=== PATIENT | female | born 1935 | race Hispanic/Latino ===

== ENCOUNTER → 2017-12-12 | Outpatient (CLI) | payer OTHER ==
[~2017-12-12] VITALS: Ht 152.4 cm; Wt 60.8 kg
[~2017-12-12] MED LIST: ASPI-1012 PO; LISI1TAB13 PO; ONDA4TAB10 PO; REGADENOSON 0.4 MG/5 ML PF SYG IVP SCH; ROSU20TA PO; [UNRECOGNIZED DRUG - OTHER] TP
== END | disposition home or self-care (01) ==
LOC: SHCH 10:03
PROVIDERS: ATTEND Internal Medicine Cardiovascular Disease
DX: I20.0 Unstable angina (principal); R06.00 Dyspnea, unspecified; R51 Headache
CPT/HCPCS: 78452; 93017; 96374; A9500 ×2; J2785

== ENCOUNTER → 2017-12-19 | Outpatient (CLI) | payer OTHER ==
[~2017-12-19] MED LIST changes: -REGADENOSON 0.4 MG/5 ML PF SYG IVP SCH
== END | disposition home or self-care (01) ==
LOC: SHCH 12:33
PROVIDERS: ATTEND Internal Medicine Cardiovascular Disease
DX: K21.9 Gastro-esophageal reflux disease without esophagitis (principal); I51.7 Cardiomegaly; I70.0 Atherosclerosis of aorta; I34.0 Nonrheumatic mitral (valve) insufficiency; I35.1 Nonrheumatic aortic (valve) insufficiency
CPT/HCPCS: 93306; 93970

== ENCOUNTER → 2018-01-30 | Outpatient (CLI) | payer OTHER | END | disposition home or self-care (01) | LOC: SHCH 08:55 | PROVIDERS: ATTEND Internal Medicine Cardiovascular Disease | DX: Z09 Encounter for follow-up examination after completed treatment for conditions other than malignant neoplasm (principal) | CPT/HCPCS: 93971 ==

== ENCOUNTER → 2018-02-06 | Outpatient (CLI) | payer OTHER | END | disposition home or self-care (01) | LOC: SHCH 08:44 | PROVIDERS: ATTEND Internal Medicine Cardiovascular Disease | DX: Z09 Encounter for follow-up examination after completed treatment for conditions other than malignant neoplasm (principal) | CPT/HCPCS: 93971 ==

== ENCOUNTER 2018-11-22 15:58 | Emergency (ER) | payer OTHER ==
[~2018-11-22 15:58] MED LIST changes: -LISI1TAB13 PO; +LISI1TAB29 PO; -ROSU20TA PO; +ROSU20TA23 PO
[2018-11-22] MEDS ORDERED: KETOROLAC TROMETHAMINE 30MG/ML ONE (17:11)
[2018-11-22 17:21] LABS: BASOPHILS % (AUTO) 0.7 % (0.0-5.0); EOSINOPHILS % (AUTO) 2.8 % (0.0-8.0); HEMATOCRIT 34.2 % (36-48); LYMPHOCYTES % (AUTO) 31.4 % (21.0-51.0); MEAN CORPUSCULAR HEMOGLOBIN 31.2 pg (27.0-33.0); MEAN CORPUSCULAR HGB CONC 34.4 g/dL (32.0-36.0); MEAN CORPUSCULAR VOLUME 90.7 fL (79-99); MONOCYTES % (AUTO) 9.5 % (3.0-13.0); NEUTROPHILS % (AUTO) 55.6 % (40.0-77.0); NUCLEATED RED BLOOD CELLS 0.1 % (0.0-0.19); PLATELET COUNT (AUTO) 229 K/uL (130-400); RED BLOOD CELL COUNT(AUTO) 3.77 MIL/uL (4.00-5.50); RED CELL DISTRIBUTION WIDTH 13.6 % (11.0-15.5); WHITE BLOOD COUNT (AUTO) 6.8 K/uL (4.8-10.8)
[2018-11-22 17:30] LABS: CREATININE 1.2 mg/dL (0.5-1.5); POTASSIUM 3.4 mmol/L (3.5-5.1)
== END 2018-11-22 19:30 | disposition home or self-care (01) ==
LOC: EDH 15:58
DX: S43.421A Sprain of right rotator cuff capsule, initial encounter (principal); S46.001A Unspecified injury of muscle(s) and tendon(s) of the rotator cuff of right shoulder, initial encounter; I10 Essential (primary) hypertension; Z88.0 Allergy status to penicillin; Z88.8 Allergy status to other drugs, medicaments and biological substances; Z98.890 Other specified postprocedural states; W18.39XA Other fall on same level, initial encounter; Z90.710 Acquired absence of both cervix and uterus; Y93.89 Activity, other specified; Y92.810 Car as the place of occurrence of the external cause; Y99.8 Other external cause status
CPT/HCPCS: 36415; 72040; 73030; 80048; 84484; 85025; 93005; 96374; 99284; J1885

== ENCOUNTER → 2018-12-01 | Outpatient (CLI) | payer OTHER ==
[~2018-12-01] MED LIST changes: +LISI1TAB13 PO; -LISI1TAB29 PO
== END | disposition home or self-care (01) ==
LOC: SHCH 09:10
PROVIDERS: ATTEND Internal Medicine Cardiovascular Disease
DX: I73.9 Peripheral vascular disease, unspecified (principal); I87.2 Venous insufficiency (chronic) (peripheral)
CPT/HCPCS: 93925; 93970

== ENCOUNTER → 2018-12-19 | Outpatient (CLI) | payer OTHER | END | disposition home or self-care (01) | LOC: OIH 09:23 | PROVIDERS: ATTEND Family Medicine | DX: M19.012 Primary osteoarthritis, left shoulder (principal) | CPT/HCPCS: 73030 ==

== ENCOUNTER → 2019-01-01 | Outpatient (CLI) | payer OTHER | END | disposition home or self-care (01) | LOC: SHCH 13:53 | PROVIDERS: ATTEND Internal Medicine Cardiovascular Disease | DX: Z09 Encounter for follow-up examination after completed treatment for conditions other than malignant neoplasm (principal) | CPT/HCPCS: 93971 ==

== ENCOUNTER → 2019-04-09 | Outpatient (CLI) | payer OTHER ==
[~2019-04-09] MED LIST changes: -LISI1TAB13 PO; +LISI1TAB29 PO
== END | disposition home or self-care (01) ==
LOC: SHCH 08:28
PROVIDERS: ATTEND Internal Medicine Cardiovascular Disease
DX: I82.432 Acute embolism and thrombosis of left popliteal vein (principal)
CPT/HCPCS: 93971

== ENCOUNTER → 2019-08-29 | Outpatient (CLI) | payer OTHER | END | disposition home or self-care (01) | LOC: SHCH 15:02 | PROVIDERS: ATTEND Internal Medicine Cardiovascular Disease | DX: I87.2 Venous insufficiency (chronic) (peripheral) (principal) | CPT/HCPCS: 93970 ==

== ENCOUNTER → 2019-09-17 | Outpatient (CLI) | payer OTHER | END | disposition home or self-care (01) | LOC: SHCH 10:00 | PROVIDERS: ATTEND Internal Medicine Cardiovascular Disease | DX: I87.2 Venous insufficiency (chronic) (peripheral) (principal); Z09 Encounter for follow-up examination after completed treatment for conditions other than malignant neoplasm | CPT/HCPCS: 93970 ==

== ENCOUNTER 2019-12-24 15:21 | Inpatient (IN) | payer OTHER ==
[~2019-12-24] VITALS: Ht 152.4 cm; Wt 64.0 kg
[2019-12-24 15:39] LABS: BASOPHILS % (AUTO) 0.5 % (0.0-5.0); EOSINOPHILS % (AUTO) 2.2 % (0.0-8.0); HEMATOCRIT 34.4 % (36-48); LYMPHOCYTES % (AUTO) 33.9 % (21.0-51.0); MEAN CORPUSCULAR HEMOGLOBIN 30.4 pg (27.0-33.0); MEAN CORPUSCULAR HGB CONC 34.6 g/dL (32.0-36.0); MONOCYTES % (AUTO) 9.1 % (3.0-13.0); NEUTROPHILS % (AUTO) 53.9 % (40.0-77.0); PLATELET COUNT (AUTO) 187 K/uL (130-400); RED BLOOD CELL COUNT(AUTO) 3.91 MIL/uL (4.00-5.50); WHITE BLOOD COUNT (AUTO) 7.7 K/uL (4.8-10.8)
[2019-12-24 15:48] LABS: CREATININE 1.2 mg/dL (0.5-1.5); POTASSIUM 4.3 mmol/L (3.5-5.1)
[2019-12-24] MEDS ORDERED: ASPIRIN 325 MG TABLET ONE (15:50)
[2019-12-24 15:53] LABS: ALBUMIN 3.3 g/dL (3.5-5.0); BILIRUBIN,TOTAL 0.3 mg/dL (0.2-1.0); TOTAL PROTEIN, SERUM 6.6 g/dL (6.0-8.3)
[2019-12-24 16:20] LABS: INR 0.97 (0.85-1.15); PARTIAL THROMBOPLASTIN TIME 27.1 SEC (26.3-35.5); PROTHROMBIN TIME 10.5 SEC (9.6-11.6)
[2019-12-24] MEDS ORDERED: DiphenhydrAMINE HCL 50 MG/ML VIAL IVP PRN (18:00)
[2019-12-24] MEDS ORDERED: NITROGLYCERIN 1GM/1 INCH PACKET TD SCH (18:00)
[2019-12-24] MEDS ORDERED: CLONIDINE HCL 0.1 MG TABLET PO PRN (18:00)
[2019-12-24] MEDS ORDERED: SODIUM CHLORIDE 0.9% 10 ML VIAL IVP PRN (18:00)
[2019-12-24] MEDS ORDERED: ZOLPIDEM TARTRATE 5 MG TAB PO PRN (18:00)
[2019-12-24] MEDS ORDERED: DIPHENHYDRAMINE HCL 25 MG CAPSULE PO PRN (18:00)
[2019-12-24] MEDS ORDERED: GUAIFENESIN-DM 200/20 MG 10 ML PO PRN (18:00)
[2019-12-24] MEDS ORDERED: ACETAMINOPHEN 325 MG TAB PO PRN ×2 (18:00)
[2019-12-24] MEDS ORDERED: NITROGLYCERIN 0.4 MG SL TAB SL PRN (18:00)
[2019-12-24] MEDS ORDERED: MAG HYDROX/AL HYDROX/SIMETH ES 30 ML SUSP UDCUP PO PRN (18:00)
[2019-12-24] MEDS ORDERED: LACTULOSE 20 GM/30 ML UDCUP PO PRN (18:00)
[2019-12-24] MEDS ORDERED: GUAIFENESIN SUGAR-FREE 100 MG/5 ML UDCUP PO PRN (18:00)
[2019-12-24] MEDS ORDERED: FUROSEMIDE 10 MG/ML 4ML VIAL IVP SCH (18:00)
[2019-12-24 18:52] LABS: T4 (THYROXINE) 7.9 ug/dL (4.7-13.3); THYROID STIMULATING HORMONE 2.86 uIU/mL (0.36-3.74)
--- NOTE | 2019-12-24 20:25 | NUR ---
ADMIT PT ADMITTED TO ROOM 407,AAOX3. DENIES ANY CP NOR ANY DISCOMFORT AT THIS TIME. ADMISSION CARE DONE. ADMISSION DATA BASE COMPLETED. ORIENTED TO ROOM AND UNIT. PT'S FAMILY CALLED BY PATIENT. INSTRUCTED TO BE NPO POST MN FOR PROCEDURE. VERBALIZES UNDERSTANDING. PROVIDED SANDWICH, JELL-0 AND JUICE TO TAKE AT THIS TIME. PLACED ON O2 AT 2LPM VIA NC. IN FOR MORE CARE AND MANAGEMENT. Addendum: 12/24/19 at 2210 by GORAN LAU RN RN Amended: Links added.
[2019-12-24 20:30] VITALS: BP 140/51
[2019-12-24] MEDS ORDERED: [UNRECOGNIZED DRUG - OTHER] PO (21:22)
[2019-12-24] MEDS ORDERED: LISI-613 PO (21:22)
[2019-12-24] MEDS ORDERED: LINA72CA PO (21:22)
[2019-12-24] MEDS ORDERED: MECL-160 PO (21:22)
[2019-12-24] MEDS ORDERED: ISOS30TA6 PO (21:22)
--- NOTE | 2019-12-24 21:35 | NUR ---
[facility]ANE TELE MONITOR REPORTS PT'S HR ON THE 30'S-40'S WITH BBB. HEART RHYTHM THE SAME WHILE IN ER. GRAIN ORIGINATION SPECIALIST ALREADY HAD SEEN PT WITH ORDERS IN ER. PT AMBULATED TO THE RESTROOM BY HERSELF WITHOUT CALLING STAFF AND GOT DIZZY AND SOB. INSTRUCTED TO BE BEDREST FOR NOW. BED ALARM ACTIVATED. FAXED ORDER OR PROCEDURE ORDER TO RESOURCE NURSE AND MADE AWARE OF PT'S PROCEDURE IN AM.
[2019-12-24 22:36] LABS: CREATINE KINASE, TOTAL 76 U/L (21-232); MYOGLOBIN 52 ng/mL (10-92); TROPONIN I < 0.04 ng/mL (0.00-0.06)
[2019-12-24 23:30] VITALS: BP 115/50
[2019-12-25] VITALS (13 sets, daily range): BP systolic 92–150; BP diastolic 39–90
--- NOTE | 2019-12-25 02:00 | NUR ---
ROUNDS PT RESTING WELL, FAIRLY ASLEEP WITH RESPIRATIONS EVEN AND UNLABORED. NO NOTED DISTRESS. KEPT UNDISTURBED FOR NOW. WILL MONITOR PT. CALL LIGHT WITHIN REACH.
[2019-12-25 05:15] LABS: CREATINE KINASE, TOTAL 57 U/L (21-232); MYOGLOBIN 47 ng/mL (10-92); TROPONIN I < 0.04 ng/mL (0.00-0.06)
--- NOTE | 2019-12-25 06:26 | NUR ---
CONSENT SKYLAR GOLDMAN, ASKED TO GET CONSENT FOR PERMANENT PACEMAKER PLACEMENT IN [place]. PT SIGNED AND REFUSED BLOOD TRANSFUSION. CONSENT PLACED IN CHART.
[2019-12-25] MEDS: ASPIRIN 325 MG TABLET PO SCH (09:00)
[2019-12-25] MEDS: PANTOPRAZOLE SODIUM 40 MG TABLET.DR PO SCH (09:00)
[2019-12-25] MEDS ORDERED: FUROSEMIDE 10 MG/ML 4ML VIAL IV SCH (09:00)
[2019-12-25] MEDS ORDERED: LIDOCAINE HCL 1% MDV 50ML VIAL ONE (10:32)
[2019-12-25] MEDS ORDERED: VANCOMYCIN 1GM+NS 250ML 250 ML IV ONE ×2 (10:32→11:46)
[2019-12-25] MEDS ORDERED: IODIXANOL 320 MG/ML 100 ML VIAL ONE (10:32)
[2019-12-25] MEDS ORDERED: BUPIVACAINE/PF 0.25% 30ML VIAL IJ ONE (10:32)
[2019-12-25] MEDS ORDERED: MIDAZOLAM HCL 1 MG/ML 2ML VIAL ONE (10:32)
[2019-12-25] MEDS ORDERED: MEPERIDINE-PF 25 MG/ML SYG ONE (10:32)
--- NOTE | 2019-12-25 11:28 | NUR ---
PATIENT TRANSPORTED VIA BED TO [facility] FOR PACEMAKER INSERTION BY DR JOHNSON.
--- NOTE | 2019-12-25 12:00 | NUR ---
PATIENT DOWN FOR PPM WILL FOLLOW UP FOR CM ASSESSMENT LATER Addendum: 12/25/19 at 1535 by NAHUN FLEMING RN CM Amended: Links added.
--- NOTE | 2019-12-25 13:33 | NUR ---
S/P PACEMAKER REPORT GIVEN AT BEDSIDE , PATIENT ALERT AND ORIENTATED X3, DENIES PAIN AT THIS TIME, LEFT ARM IN SLING , SITE DRY AND INTACT, B/P 126/72, P 74, O2 SATS 99% ON BEDREST X 3 HOUR TILL 1630. WILL CONTINUE TO MONITOR
--- NOTE | 2019-12-25 17:52 | NUR ---
NOTIFIED BY RESPIRATORY OF CHEST XRAY RESULTS: NO INFILTRATE IS SEEN, THERE IS 30% LEFT SIDE PNEUMOTHORAX . ORDERES RECEIVED FOR O2 AT 100% OR MUCH PATIENT CAN TOLERATE, IS EVERY 2 HOURS, AND CHEST XRAY AT MIDNIGHT
--- NOTE | 2019-12-25 19:55 | NUR ---
PATIENT A/OX3. TALKING ON THE PHONE WITH FAMILY. NON RE BREATHER ON PATIENT'S CHIN. NO RESPIRATORY DISTRESS NOTED. DENIES CHEST PAIN.POST PM PLACEMENT. LEFT UPPER CHEST INCISION. DRESSING CDI. SWELLING/ BRUISING TO PM SITE. WILL CONTINUE TO MONITOR FOR HEMATOMA.
--- NOTE | 2019-12-25 20:00 | NUR ---
DR COSBY AT BEDSIDE CHEST TUBE INSERTED AT BEDSIDE. LOW CONTINUOUS SUCTION. UNMEASURABLE AMOUNT OF SEROUS FLUID IN ATRIUM. PATIENT CURRENTLY ON A NON RE BREATHER. PER DR COSBY CXR TO BE DONE POST INSERTION.
[2019-12-25] MEDS: MORPHINE SULFATE 2 MG/ML 1ML SYG IVP PRN (20:58)
[2019-12-26] MEDS: MORPHINE SULFATE 2 MG/ML 1ML SYG IVP PRN ×3 (01:09→15:05)
[2019-12-26 03:23] VITALS: BP 146/65
[2019-12-26 04:16] LABS: BASOPHILS % (AUTO) 0.6 % (0.0-5.0); EOSINOPHILS % (AUTO) 1.5 % (0.0-8.0); HEMATOCRIT 34.3 % (36-48); LYMPHOCYTES % (AUTO) 21.2 % (21.0-51.0); MEAN CORPUSCULAR HEMOGLOBIN 29.9 pg (27.0-33.0); MEAN CORPUSCULAR HGB CONC 33.5 g/dL (32.0-36.0); MEAN CORPUSCULAR VOLUME 89.1 fL (79-99); MONOCYTES % (AUTO) 9.6 % (3.0-13.0); NEUTROPHILS % (AUTO) 66.7 % (40.0-77.0); PLATELET COUNT (AUTO) 175 K/uL (130-400); RED BLOOD CELL COUNT(AUTO) 3.85 MIL/uL (4.00-5.50); RED CELL DISTRIBUTION WIDTH 13.8 % (11.0-15.5)
[2019-12-26 04:33] LABS: CREATININE 1.1 mg/dL (0.5-1.5); POTASSIUM 4.4 mmol/L (3.5-5.1)
[2019-12-26 07:49] VITALS: BP 154/77
[2019-12-26] MEDS: PANTOPRAZOLE SODIUM 40 MG TABLET.DR PO SCH (08:21)
[2019-12-26] MEDS: ASPIRIN 325 MG TABLET PO SCH (08:21)
[2019-12-26] MEDS: ONDANSETRON HCL 4 MG/2 ML VIAL IVP PRN ×2 (08:32→18:17)
[2019-12-26 11:16] VITALS: BP 138/78
[2019-12-26 15:30] VITALS: BP 121/61
[2019-12-26] MEDS: ACETAMINOPHEN-CODEINE 300/30MG TAB PO PRN (18:21)
[2019-12-26 20:00] VITALS: BP 133/72
[2019-12-27] VITALS (7 sets, daily range): BP systolic 95–149; BP diastolic 53–92
[2019-12-27] MEDS: MORPHINE SULFATE 2 MG/ML 1ML SYG IVP PRN ×3 (03:55→18:11)
--- NOTE | 2019-12-27 08:15 | NUR ---
chest tube pt awake and alert, denies chest pain, no sob or labored respirations. chest tube in place and patent, secured, clamped as ordered. ppm site intact, no edema, no hematoma, pulses palpable. ppm precautions. assistance with adls. pt states no bm in a few days, refuses stool softener or laxative.
[2019-12-27] MEDS: ACETAMINOPHEN-CODEINE 300/30MG TAB PO PRN ×2 (08:52→22:35)
[2019-12-27] MEDS: ASPIRIN 325 MG TABLET PO SCH (08:52)
[2019-12-27] MEDS: PANTOPRAZOLE SODIUM 40 MG TABLET.DR PO SCH (08:53)
[2019-12-27] MEDS ORDERED: ATORVASTATIN CALCIUM 40 MG TABLET PO SCH (21:00)
[2019-12-28 04:00] VITALS: BP 139/65
[2019-12-28] MEDS: ONDANSETRON HCL 4 MG/2 ML VIAL IVP PRN (04:57)
[2019-12-28 07:00] VITALS: BP 133/73
[2019-12-28] MEDS: ASPIRIN 325 MG TABLET PO SCH (07:35)
[2019-12-28] MEDS: PANTOPRAZOLE SODIUM 40 MG TABLET.DR PO SCH (07:35)
[2019-12-28] MEDS: MORPHINE SULFATE 2 MG/ML 1ML SYG IVP PRN (07:36)
[2019-12-28] MEDS ORDERED: LISINOPRIL 20 MG TABLET PO SCH (09:00)
[2019-12-28] MEDS ORDERED: ASPIRIN 325 MG TABLET PO SCH (09:00)
[2019-12-28] MEDS ORDERED: ISOSORBIDE MONO 30MG TAB SR PO SCH (09:00)
[2019-12-28 11:00] VITALS: BP 103/55
--- NOTE | 2019-12-28 11:52 | NUR ---
LEFT SIDE CHEST TUBE REMOVED WITH NO COMPLICATIONS. DR. LLANOS ROUNDED. IF PATIENT DOES WELL POST CHEST TUBE REMOVAL CAN BE DISCHARGED LATER THIS EVENING. PATIENT PLACED ON ROOM AIR. WILL CONTINUE TO MONITOR.
[2019-12-28 16:00] VITALS: BP 106/55
--- NOTE | 2019-12-28 16:55 | NUR ---
PATIENT DOING WELL POST CHEST TUBE REMOVAL, NO COMPLICATIONS, AMBULATING WITH HAND HELD ASSIST WITH NO DIFFICULTIES. SATURATING WELL ON ROOM AIR. SPOKE WITH DR. VIET YOUNG TO DISCHARGE PATIENT AND FOLLOW UP IN OFFICE ON TUESDAY
--- NOTE | 2019-12-28 17:35 | NUR ---
DISCHARGE INSTRUCTIONS GIVEN TO PATIENT, EDUCATED ON LEFT ARM PRECAUTIONS AND SITE CARE WELL CARE OF CHEST TUBE REMOVAL SITE. MADE AWARE OF FOLLOW UP APPOINTMENT WITH DR. LLANOS AND NEED TO SCHEDULE APPOINTMENT WITH DR. COSBY AND DR. JOHNSON, PROVIDED WITH PHONE NUMBERS. PATIENT AT THIS TIME AMBULATING IN ROOM WITH NO DIFFICULTY. DENIES CHEST PAIN OR SOB. IV AND TELE PACK REMOVED. GIVEN PACEMAKER IMPLANT CARD INFO. CHF EDUCATIONS PROVIDED VERBAL/WRITTEN. NO NEW PRESCRIPTIONS. PATIENT AWAITING HER DAUGHTER TO PICK HER UP
--- NOTE | 2019-12-28 19:37 | NUR ---
RECEIVED CALL FROM PATIENTS DAUGHTER REGARDING DISCHARGE INSTRUCTIONS. DAUGHTER REQUESTING DISCHARGE INSTRUCTIONS BE GIVEN OVER THE PHONE DUE TO SENT IN [place] FOR PATIENT. WENT OVER ALL FOLLOW UP APPOINTMENTS, LEFT ARM RESTRICTIONS, PACEMAKER MONITOR AT BEDSIDE, CHEST TUBE REMOVAL SITE CARE, AND PACEMAKER SITE CARE. ALL QUESTIONS ANSWERED.
[2020-05-06] MEDS ORDERED: HYDR-4060 PO (16:17)
[2020-05-06] MEDS ORDERED: NITR0.4T50 SL (16:17)
[2020-05-06] MEDS ORDERED: DEXL30CA3 PO (16:17)
[2020-05-22] MEDS ORDERED: FLUT1AER IH (19:45)
[2020-05-23] MEDS ORDERED: LEVO500T89 PO (10:46)
[2020-05-23] MEDS ORDERED: LEVE250T PO (10:46)
== END 2019-12-28 18:15 | disposition home or self-care (01) | DRG 242 ==
LOC: EDH 15:21 → EDHIP 17:19 → 4BH 20:47
PROVIDERS: ADMIT Family Medicine; ATTEND Family Medicine
PROC: 0JH606Z Insertion of Pacemaker, Dual Chamber into Chest Subcutaneous Tissue and Fascia, Open Approach (ICD-10-PCS; principal; 2019-12-25)
PROC: 02H63JZ Insertion of Pacemaker Lead into Right Atrium, Percutaneous Approach (ICD-10-PCS; 2019-12-25)
PROC: 02HK3JZ Insertion of Pacemaker Lead into Right Ventricle, Percutaneous Approach (ICD-10-PCS; 2019-12-25)
PROC: 0W9B30Z Drainage of Left Pleural Cavity with Drainage Device, Percutaneous Approach (ICD-10-PCS; 2019-12-26)
DX: I49.5 Sick sinus syndrome (principal); I50.33 Acute on chronic diastolic (congestive) heart failure; I44.2 Atrioventricular block, complete; J95.811 Postprocedural pneumothorax; I87.2 Venous insufficiency (chronic) (peripheral); I25.10 Atherosclerotic heart disease of native coronary artery without angina pectoris; E78.5 Hyperlipidemia, unspecified; I11.0 Hypertensive heart disease with heart failure; Y71.8 Miscellaneous cardiovascular devices associated with adverse incidents, not elsewhere classified; I37.1 Nonrheumatic pulmonary valve insufficiency; I44.1 Atrioventricular block, second degree; Y92.89 Other specified places as the place of occurrence of the external cause; Z79.82 Long term (current) use of aspirin; Z79.899 Other long term (current) drug therapy; Z90.710 Acquired absence of both cervix and uterus; Z95.5 Presence of coronary angioplasty implant and graft; Z88.0 Allergy status to penicillin; Z88.8 Allergy status to other drugs, medicaments and biological substances
CPT/HCPCS: 33208; 36415; 71045; 80048; 80053; 82550; 83874; 83880; 84436; 84443; 84484; 85025; 85610; 85730; 93005; 93306; 93356; 99156; 99157; C1785; G0378; J2175; J2250; J2405; J3370; J3490; Q9967

== ENCOUNTER → 2020-01-29 | Outpatient (CLI) | payer OTHER | END | disposition home or self-care (01) | LOC: OIH 08:52 | PROVIDERS: ATTEND Family Medicine | DX: S43.422A Sprain of left rotator cuff capsule, initial encounter (principal); M85.812 Other specified disorders of bone density and structure, left shoulder; X58.XXXA Exposure to other specified factors, initial encounter; Y93.89 Activity, other specified; Y92.89 Other specified places as the place of occurrence of the external cause; Y99.8 Other external cause status ==

== ENCOUNTER → 2020-04-25 | Outpatient (CLI) | payer OTHER ==
[~2020-04-25] MED LIST changes: +DEXL30CA3 PO; +HYDR-4060 PO; +ISOS30TA6 PO; +LINA72CA PO; +LISI-613 PO; -LISI1TAB29 PO; +MECL-160 PO; +NITR0.4T50 SL; +[UNRECOGNIZED DRUG - OTHER] PO; -[UNRECOGNIZED DRUG - OTHER] TP
== END | disposition home or self-care (01) ==
LOC: SHCH 10:26
PROVIDERS: ATTEND Internal Medicine Cardiovascular Disease
DX: R60.9 Edema, unspecified (principal)
CPT/HCPCS: 93970

== ENCOUNTER → 2020-04-28 | Outpatient (CLI) | payer OTHER ==
[~2020-04-28] MED LIST changes: -DEXL30CA3 PO; -HYDR-4060 PO; -NITR0.4T50 SL
== END | disposition home or self-care (01) ==
LOC: OIH 09:54
PROVIDERS: ATTEND Family Medicine
DX: I25.10 Atherosclerotic heart disease of native coronary artery without angina pectoris (principal); Q25.49 Other congenital malformations of aorta; R05 Cough
CPT/HCPCS: 71046

== ENCOUNTER 2020-05-20 13:19 | Emergency (ER) | payer OTHER ==
[~2020-05-20 13:19] MED LIST changes: +DEXL30CA3 PO; +HYDR-4060 PO; +NITR0.4T50 SL
[2020-05-20] MEDS ORDERED: ONDANSETRON HCL 4 MG/2 ML VIAL ONE (13:28)
[2020-05-20 14:05] LABS: APPEARANCE,URINE Cloudy (CLEAR); BILIRUBIN,URINE Negative (NEGATIVE); COLOR,URINE Dark Yellow (YELLOW); GLUCOSE, URINE (UA) Negative (NEGATIVE); KETONES,URINE Trace mg/dL (NEGATIVE); LEUKOCYTE ESTERASE ,URINE Moderate (NEGATIVE); NITRATE,URINE Negative (NEGATIVE); OCCULT BLOOD,URINE Negative (NEGATIVE); PH,URINE 6.5 (5.0-8.0); PROTEIN,URINE POS 1+ mg/dL (NEGATIVE)
[2020-05-20 14:18] LABS: BASOPHILS % (AUTO) 0.3 % (0.0-5.0); EOSINOPHILS % (AUTO) 0.8 % (0.0-8.0); HEMATOCRIT 39.4 % (36-48); LYMPHOCYTES % (AUTO) 32.2 % (21.0-51.0); MEAN CORPUSCULAR HEMOGLOBIN 29.5 pg (27.0-33.0); MEAN CORPUSCULAR VOLUME 89.3 fL (79-99); MONOCYTES % (AUTO) 10.7 % (3.0-13.0); NEUTROPHILS % (AUTO) 54.8 % (40.0-77.0); PLATELET COUNT (AUTO) 268 K/uL (130-400); RED BLOOD CELL COUNT(AUTO) 4.41 MIL/uL (4.00-5.50); RED CELL DISTRIBUTION WIDTH 14.4 % (11.0-15.5); WHITE BLOOD COUNT (AUTO) 15.6 K/uL (4.8-10.8)
[2020-05-20 14:25] LABS: BACTERIA,URINE Many /HPF (None Seen); RBC,URINE 0-1 /HPF (0-1)
[2020-05-20 14:26] LABS: MUCUS,URINE Few LPF (None Seen); SQUAMOUS EPITHELIAL CELL,UR Few /HPF (0-2)
[2020-05-20 14:30] LABS: CREATININE 1.7 mg/dL (0.5-1.5); PARTIAL THROMBOPLASTIN TIME 24.1 SEC (26.3-35.5); POTASSIUM 3.4 mmol/L (3.5-5.1); PROTHROMBIN TIME 10.8 SEC (9.6-11.6)
[2020-05-20 14:36] LABS: ALBUMIN 3.5 g/dL (3.5-5.0); BILIRUBIN,TOTAL 0.3 mg/dL (0.2-1.0); TOTAL PROTEIN, SERUM 7.9 g/dL (6.0-8.3)
[2020-05-20] MEDS ORDERED: LEVOFLOXACIN 500 MG/D5W 100 ML 100 ML ONE (14:47)
[2020-05-20] MEDS ORDERED: FOSPHENYTOIN SODIUM 500 MG/10ML VIAL IJ ONE (15:04)
[2020-05-22] MEDS ORDERED: FLUT1AER IH (19:45)
[2020-05-23] MEDS ORDERED: LEVO500T89 PO (10:46)
[2020-05-23] MEDS ORDERED: LEVE250T PO (10:46)
== END 2020-05-20 16:30 | disposition home or self-care (01) ==
LOC: EDH 13:19
DX: N39.0 Urinary tract infection, site not specified (principal); R56.9 Unspecified convulsions; I10 Essential (primary) hypertension; E11.9 Type 2 diabetes mellitus without complications; I25.10 Atherosclerotic heart disease of native coronary artery without angina pectoris; Z88.0 Allergy status to penicillin; Z88.8 Allergy status to other drugs, medicaments and biological substances
CPT/HCPCS: 36415; 70450; 71045; 80053; 81001; 82948; 83605; 83880; 84484; 85025; 85610; 85730; 87040 ×2; 87077; 87088; 87186; 93005; 96365; 96368; 96375; 99285; J1956; J2405; Q2009; 96374

== ENCOUNTER → 2020-06-06 | Outpatient (CLI) | payer OTHER ==
[~2020-06-06] MED LIST changes: +AEC81 PO; +FLUT1AER IH; +HYDR12.54 PO; +LEVE250T PO; +LEVE750T10 PO; +LEVO500T89 PO; +VERA120T13 PO; -[UNRECOGNIZED DRUG - OTHER] PO
[2020-06-06 09:57] LABS: BASOPHILS % (AUTO) 0.6 % (0.0-5.0); EOSINOPHILS % (AUTO) 3.7 % (0.0-8.0); HEMATOCRIT 36.7 % (36-48); LYMPHOCYTES % (AUTO) 28.9 % (21.0-51.0); MEAN CORPUSCULAR HEMOGLOBIN 29.4 pg (27.0-33.0); MEAN CORPUSCULAR HGB CONC 33.5 g/dL (32.0-36.0); MEAN CORPUSCULAR VOLUME 87.8 fL (79-99); MONOCYTES % (AUTO) 10.5 % (3.0-13.0); NEUTROPHILS % (AUTO) 55.7 % (40.0-77.0); PLATELET COUNT (AUTO) 212 K/uL (130-400); RED BLOOD CELL COUNT(AUTO) 4.18 MIL/uL (4.00-5.50); RED CELL DISTRIBUTION WIDTH 13.9 % (11.0-15.5)
[2020-06-06 09:59] LABS: APPEARANCE,URINE Clear (CLEAR); BILIRUBIN,URINE Negative (NEGATIVE); COLOR,URINE Yellow (YELLOW); GLUCOSE, URINE (UA) Negative (NEGATIVE); KETONES,URINE Negative (NEGATIVE); LEUKOCYTE ESTERASE ,URINE Negative (NEGATIVE); NITRATE,URINE Negative (NEGATIVE); OCCULT BLOOD,URINE Negative (NEGATIVE); PH,URINE 6.5 (5.0-8.0); PROTEIN,URINE Negative (NEGATIVE); UROBILINOGEN,URINE 0.2 mg/dL (0.2-1.0)
[2020-06-06 10:08] LABS: CREATININE 1.1 mg/dL (0.5-1.5); POTASSIUM 4.6 mmol/L (3.5-5.1)
[2020-06-06 10:10] LABS: INR 0.94 (0.85-1.15); PARTIAL THROMBOPLASTIN TIME 26.4 SEC (26.3-35.5); PROTHROMBIN TIME 10.2 SEC (9.6-11.6)
== END | disposition home or self-care (01) ==
LOC: EDSTATUS 08:00 → DAH 10:00 → EDSTATUS 06-10 08:00
PROVIDERS: ATTEND Internal Medicine Cardiovascular Disease
DX: Z01.810 Encounter for preprocedural cardiovascular examination (principal); I25.119 Atherosclerotic heart disease of native coronary artery with unspecified angina pectoris; I49.1 Atrial premature depolarization; Z79.01 Long term (current) use of anticoagulants; Z88.1 Allergy status to other antibiotic agents; Z88.8 Allergy status to other drugs, medicaments and biological substances
CPT/HCPCS: 36415; 71045; 80048; 81003; 85025; 85610; 85730; 93005

== ENCOUNTER 2020-11-13 12:00 | Inpatient (IN) | payer OTHER ==
[~2020-11-13] VITALS: Ht 152.4 cm; Wt 60.1 kg
[2020-11-13 09:50] VITALS: BP 141/64
[2020-11-13 11:38] LABS: BASOPHILS % (AUTO) 0.5 % (0.0-5.0); EOSINOPHILS % (AUTO) 2.5 % (0.0-8.0); HEMATOCRIT 37.1 % (36-48); LYMPHOCYTES % (AUTO) 30.3 % (21.0-51.0); MEAN CORPUSCULAR HEMOGLOBIN 29.4 pg (27.0-33.0); MEAN CORPUSCULAR HGB CONC 33.2 g/dL (32.0-36.0); MEAN CORPUSCULAR VOLUME 88.5 fL (79-99); MONOCYTES % (AUTO) 8.8 % (3.0-13.0); NEUTROPHILS % (AUTO) 57.2 % (40.0-77.0); PLATELET COUNT (AUTO) 258 K/uL (130-400); RED BLOOD CELL COUNT(AUTO) 4.19 MIL/uL (4.00-5.50); RED CELL DISTRIBUTION WIDTH 14.6 % (11.0-15.5)
[2020-11-13 11:50] LABS: CREATININE 1.1 mg/dL (0.5-1.5); POTASSIUM 4.4 mmol/L (3.5-5.1)
[2020-11-13 11:54] LABS: APPEARANCE,URINE Clear (CLEAR); BILIRUBIN,URINE Negative (NEGATIVE); COLOR,URINE Yellow (YELLOW); GLUCOSE, URINE (UA) Negative (NEGATIVE); KETONES,URINE Negative (NEGATIVE); LEUKOCYTE ESTERASE ,URINE Negative (NEGATIVE); NITRATE,URINE Negative (NEGATIVE); OCCULT BLOOD,URINE Negative (NEGATIVE); PROTEIN,URINE Negative (NEGATIVE); UROBILINOGEN,URINE 0.2 mg/dL (0.2-1.0)
[~2020-11-13 12:00] MED LIST changes: -ASPI-1012 PO; -FLUT1AER IH; -HYDR-4060 PO; -HYDR12.54 PO; -ISOS30TA6 PO; +ISOS30TA92 PO; -LEVE250T PO; -LEVE750T10 PO; -LEVO500T89 PO; -LISI-613 PO; +LISI20TA24 PO; -ROSU20TA23 PO; -VERA120T13 PO
[2020-11-13 13:41] LABS: PROTHROMBIN TIME 10.9 SEC (9.6-11.6)
[2020-11-14] MEDS ORDERED: LORA10TA7 PO (14:05)
[2020-11-14] MEDS ORDERED: ROSU20TA31 PO (14:05)
[2020-11-14] MEDS ORDERED: LAMO50TA3 PO ×2 (14:05)
[2020-11-14] MEDS ORDERED: HYDR-4060 PO (14:05)
[2020-11-14] MEDS ORDERED: MUPI22OI2 TP (14:05)
[2020-11-14] MEDS ORDERED: LACT10SO9 PO (14:05)
[2020-11-17] VITALS (21 sets, daily range): BP systolic 98–179; BP diastolic 54–86
[2020-11-17] MEDS ORDERED: LACTATED RINGERS 1000ML 1,000 ML IV ONE (09:29)
[2020-11-17] MEDS ORDERED: CLINDAMYCIN IVPB 900MG/50ML 50 ML IV ONE ×2 (09:30→19:53)
[2020-11-17] MEDS ORDERED: ROPIVACAINE 0.5% 5MG/ML 30ML IJ ONE (10:37)
[2020-11-17] MEDS ORDERED: SUCCINYLCHOLINE CHLORIDE 20 MG/ML 10 ML VIAL ONE (10:38)
[2020-11-17] MEDS ORDERED: LIDOCAINE PF 100MG/5ML (2%) SYRINGE 5ML ONE (10:38)
[2020-11-17] MEDS ORDERED: FENTANYL CITRATE PF 50 MCG/1 ML 2ML VIAL ONE (10:39)
[2020-11-17] MEDS ORDERED: ROCURONIUM 10MG/1ML SYR 10 MG/ML ML ONE (10:39)
[2020-11-17] MEDS ORDERED: PROPOFOL 10 MG/ML 20ML VIAL IV ONE (10:39)
[2020-11-17] MEDS ORDERED: CLINDAMYCIN 900MG/6ML INJ ONE (11:17)
[2020-11-17] MEDS ORDERED: TRANEXAMIC ACID 1000MG/10ML ONE ×2 (11:17→16:17)
[2020-11-17] MEDS ORDERED: EPHEDRINE SULFATE 50 MG/ML AMPULE ONE (12:28)
[2020-11-17] MEDS ORDERED: GLYCOPYRROLATE 1 MG/5 ML SYRINGE ONE (15:33)
[2020-11-17] MEDS ORDERED: NEOSTIGMINE 5MG/5ML SYR IV ONE (15:33)
[2020-11-17] MEDS ORDERED: DiphenhydrAMINE HCL 50 MG/ML VIAL IVP PRN (15:45)
[2020-11-17] MEDS ORDERED: TEMAZEPAM 15 MG CAPSULE PO PRN (15:45)
[2020-11-17] MEDS ORDERED: 0.9%NACL 1000ML 1,000 ML IV SCH (15:45)
[2020-11-17] MEDS ORDERED: FE FUMARATE/FA/MV, MIN COMB#15 1 TAB PO PRN (15:45)
[2020-11-17] MEDS ORDERED: TRAMADOL HCL 50 MG TABLET PO PRN (15:45)
[2020-11-17] MEDS ORDERED: KCL 20 MEQ ERTAB PO PRN (15:45)
[2020-11-17] MEDS ORDERED: POTASSIUM CHLORIDE 20MEQ/100ML 100 ML IV PRN (15:45)
[2020-11-17] MEDS ORDERED: CALCIUM CARB 500MG PO PRN (15:45)
[2020-11-17] MEDS ORDERED: ONDANSETRON 4MG INJ IVP PRN (15:45)
[2020-11-17] MEDS ORDERED: KETOROLAC 15MG/ML VIAL (15MG/ML) IV PRN (15:45)
[2020-11-17] MEDS ORDERED: OXYCODONE HCL 5 MG TAB PO PRN ×2 (15:45)
[2020-11-17] MEDS ORDERED: LIDOCAINE HCL-MPF 1% 2ML VIAL IV PRN (15:45)
[2020-11-17] MEDS ORDERED: POTASSIUM CHLORIDE 10% ELIXIR 20 MEQ/15 ML UDCUP PO PRN (15:45)
[2020-11-17] MEDS: ACETAMINOPHEN 500 MG TABLET PO SCH ×2 (15:45→20:14)
[2020-11-17] MEDS ORDERED: ONDANSETRON 4MG INJ ONE (15:57)
[2020-11-17] MEDS ORDERED: NITROGLYCERIN 0.4 MG SL TAB SL PRN (19:00)
[2020-11-17] MEDS ORDERED: MECLIZINE HCL 25 MG TABLET PO PRN (19:00)
[2020-11-17] MEDS: MUPIROCIN OINTMENT 22 GM TUBE TP SCH ×2 (20:02→20:15)
[2020-11-17] MEDS: LINACLOTIDE 72 MCG PO SCH (20:02)
[2020-11-17] MEDS: CLINDAMYCIN IVPB 900MG/50ML 50 ML IVPB SCH (20:12)
[2020-11-17] MEDS: ATORVASTATIN 40 MG TABLET PO SCH (20:12)
[2020-11-17] MEDS: CELECOXIB 200 MG CAP PO SCH (20:13)
[2020-11-17] MEDS: LAMOTRIGINE 25 MG TAB PO SCH (20:13)
[2020-11-18] MEDS: CLINDAMYCIN IVPB 900MG/50ML 50 ML IVPB SCH (04:52)
[2020-11-18 05:06] LABS: MEAN CORPUSCULAR HEMOGLOBIN 28.7 pg (27.0-33.0); MEAN CORPUSCULAR HGB CONC 32.7 g/dL (32.0-36.0); MEAN CORPUSCULAR VOLUME 87.7 fL (79-99); RED BLOOD CELL COUNT(AUTO) 3.42 MIL/uL (4.00-5.50); RED CELL DISTRIBUTION WIDTH 14.6 % (11.0-15.5); WHITE BLOOD COUNT (AUTO) 8.9 K/uL (4.8-10.8)
[2020-11-18 05:14] VITALS: BP 104/58
[2020-11-18 05:21] LABS: CREATININE 1.2 mg/dL (0.5-1.5); POTASSIUM 4.3 mmol/L (3.5-5.1)
[2020-11-18] MEDS: ACETAMINOPHEN 500 MG TABLET PO SCH ×3 (06:14→20:13)
[2020-11-18] MEDS: FAMOTIDINE 20MG TAB PO SCH (07:58)
[2020-11-18] MEDS: ASPIRIN 81 MG EC TAB PO SCH (07:58)
[2020-11-18] MEDS: CELECOXIB 200 MG CAP PO SCH ×2 (07:58→20:12)
[2020-11-18 08:00] VITALS: BP 80/50
[2020-11-18] MEDS: POLYETHYLENE GLYCOL 3350 17 GM POWD.PACK PO SCH (08:01)
[2020-11-18] MEDS: LAMOTRIGINE 25 MG TAB PO SCH ×2 (08:43→20:12)
[2020-11-18] MEDS: MUPIROCIN OINTMENT 22 GM TUBE TP SCH ×2 (09:00→20:13)
[2020-11-18] MEDS ORDERED: ISOSORBIDE MONO 30MG SR TAB PO SCH (09:00)
[2020-11-18] MEDS ORDERED: LISINOPRIL 20 MG TABLET PO SCH (09:00)
[2020-11-18] MEDS: PANTOPRAZOLE 40 MG TAB DR PO SCH (09:00)
[2020-11-18 09:13] VITALS: BP 96/44
[2020-11-18] MEDS: LORATADINE 10 MG TABLET PO SCH (14:36)
[2020-11-18 16:00] VITALS: BP 139/71
[2020-11-18] MEDS: ATORVASTATIN 40 MG TABLET PO SCH (20:12)
[2020-11-18 20:39] VITALS: BP 143/69
[2020-11-18 23:39] VITALS: BP 156/62
[2020-11-19] MEDS: LINACLOTIDE 72 MCG PO SCH (00:05)
[2020-11-19 03:26] VITALS: BP 130/61
[2020-11-19 07:56] VITALS: BP 119/60
[2020-11-19] MEDS: MUPIROCIN OINTMENT 22 GM TUBE TP SCH (09:00)
[2020-11-19 11:20] VITALS: BP 145/58
[2020-11-19] MEDS: ACETAMINOPHEN 500 MG TABLET PO SCH ×2 (11:32→15:45)
[2020-11-19] MEDS: ASPIRIN 81 MG EC TAB PO SCH (11:32)
[2020-11-19] MEDS: LAMOTRIGINE 25 MG TAB PO SCH (11:33)
[2020-11-19] MEDS: FAMOTIDINE 20MG TAB PO SCH (11:33)
[2020-11-19] MEDS: PANTOPRAZOLE 40 MG TAB DR PO SCH (11:33)
[2020-11-19] MEDS: CELECOXIB 200 MG CAP PO SCH (11:33)
[2020-11-19] MEDS: LORATADINE 10 MG TABLET PO SCH (11:34)
[2020-11-19] MEDS: POLYETHYLENE GLYCOL 3350 17 GM POWD.PACK PO SCH (11:34)
[2020-11-19] MEDS ORDERED: HYDR-4060 PO ×2 (15:00→15:05)
[2020-11-19 16:41] VITALS: BP 136/76
[2020-11-20] MEDS ORDERED: BISACODYL 10 MG SUPP.RECT RC PRN (15:45)
[2021-06-12] MEDS ORDERED: METO-408 PO (12:57)
== END 2020-11-19 17:00 | disposition home health service (06) | DRG 483 ==
LOC: EDSTATUS 12:00 → DAHIP 11-17 07:52 → EDSTATUS 11-17 12:00 → 4AH 11-17 17:11
PROVIDERS: ADMIT Orthopaedic Surgery; ATTEND Orthopaedic Surgery
PROC: 0RRK00Z Replacement of Left Shoulder Joint with Reverse Ball and Socket Synthetic Substitute, Open Approach (ICD-10-PCS; principal; 2020-11-16)
DX: M12.812 Other specific arthropathies, not elsewhere classified, left shoulder (principal); G89.29 Other chronic pain; Z88.0 Allergy status to penicillin; Z88.8 Allergy status to other drugs, medicaments and biological substances; Z20.822 Contact with and (suspected) exposure to COVID-19; D64.9 Anemia, unspecified; E78.5 Hyperlipidemia, unspecified; I10 Essential (primary) hypertension; M12.9 Arthropathy, unspecified; Z82.49 Family history of ischemic heart disease and other diseases of the circulatory system; Z90.710 Acquired absence of both cervix and uterus; Z98.84 Bariatric surgery status
CPT/HCPCS: 36415; 73030; 80048; 81003; 85025; 85027; 85610; 87641; 88305; 88311; 97039; C1776; G0378; J0330; J1885; J2001; J2405; J2704; J2710; J2795; J3010; J3490; J7030; J7120; U0003

== ENCOUNTER → 2021-02-12 | Outpatient (CLI) | payer OTHER ==
[~2021-02-12] MED LIST changes: +HYDR-4060 PO; +LAMO50TA3 PO; +LORA10TA7 PO; +MUPI22OI2 TP; +ROSU20TA31 PO
== END | disposition home or self-care (01) ==
LOC: RAH 13:57
PROVIDERS: ATTEND Orthopaedic Surgery
DX: M75.101 Unspecified rotator cuff tear or rupture of right shoulder, not specified as traumatic (principal); M12.811 Other specific arthropathies, not elsewhere classified, right shoulder
CPT/HCPCS: 73200

== ENCOUNTER 2021-06-15 09:22 | Observation (INO) | payer OTHER ==
[2021-06-12 10:10] LABS: BASOPHILS % (AUTO) 0.6 % (0.0-5.0); HEMATOCRIT 36.1 % (36-48); LYMPHOCYTES % (AUTO) 21.5 % (21.0-51.0); MEAN CORPUSCULAR HEMOGLOBIN 28.7 pg (27.0-33.0); MEAN CORPUSCULAR HGB CONC 32.4 g/dL (32.0-36.0); MEAN CORPUSCULAR VOLUME 88.5 fL (79-99); MONOCYTES % (AUTO) 10.2 % (3.0-13.0); NEUTROPHILS % (AUTO) 62.4 % (40.0-77.0); PLATELET COUNT (AUTO) 207 K/uL (130-400); RED BLOOD CELL COUNT(AUTO) 4.08 MIL/uL (4.00-5.50); RED CELL DISTRIBUTION WIDTH 15.6 % (11.0-15.5); WHITE BLOOD COUNT (AUTO) 6.8 K/uL (4.8-10.8)
[2021-06-12 10:11] LABS: APPEARANCE,URINE Clear (CLEAR); BILIRUBIN,URINE Negative (NEGATIVE); COLOR,URINE Yellow (YELLOW); GLUCOSE, URINE (UA) Negative (NEGATIVE); KETONES,URINE Negative (NEGATIVE); LEUKOCYTE ESTERASE ,URINE Trace (NEGATIVE); NITRATE,URINE Negative (NEGATIVE); OCCULT BLOOD,URINE Negative (NEGATIVE); PH,URINE 5.5 (5.0-8.0); PROTEIN,URINE Negative (NEGATIVE); UROBILINOGEN,URINE 0.2 mg/dL (0.2-1.0)
[2021-06-12 10:25] LABS: INR 1.05 (0.85-1.15); PROTHROMBIN TIME 11.4 SEC (9.6-11.6)
[2021-06-12 11:00] VITALS: BP 167/79
[2021-06-12 11:02] LABS: BACTERIA,URINE Rare /HPF (None Seen); RBC,URINE 0-1 /HPF (0-1); SQUAMOUS EPITHELIAL CELL,UR Rare /HPF (0-2); WBC,URINE 0-1 /HPF (0-1)
[~2021-06-15] VITALS: Ht 149.9 cm; Wt 60.8 kg
[2021-06-15] VITALS (31 sets, daily range): BP systolic 120–184; BP diastolic 59–92
[~2021-06-15 09:22] MED LIST changes: -HYDR-4060 PO; -LINA72CA PO; -LORA10TA7 PO; +METO-408 PO; -MUPI22OI2 TP
[2021-06-15] MEDS ORDERED: CLINDAMYCIN IVPB 900MG/50ML 50 ML IV ONE (10:15)
[2021-06-15] MEDS ORDERED: LACTATED RINGERS 1000ML 1,000 ML IV ONE (10:15)
[2021-06-15] MEDS ORDERED: PROPOFOL 10 MG/ML 20ML VIAL IV ONE (12:21)
[2021-06-15] MEDS ORDERED: DEXAMETHASONE SOD PHOSPHATE 10MG/ML 1ML VIAL ONE (12:21)
[2021-06-15] MEDS ORDERED: SUCCINYLCHOLINE CHLORIDE 20 MG/ML 10 ML VIAL ONE (12:21)
[2021-06-15] MEDS ORDERED: GLYCOPYRROLATE 1 MG/5 ML SYRINGE ONE (12:21)
[2021-06-15] MEDS ORDERED: LIDOCAINE PF 100MG/5ML (2%) SYRINGE 5ML ONE (12:21)
[2021-06-15] MEDS ORDERED: NEOSTIGMINE 5MG/5ML SYR IV ONE (12:22)
[2021-06-15] MEDS ORDERED: FENTANYL CITRATE PF 50 MCG/1 ML 2ML VIAL ONE (12:22)
[2021-06-15] MEDS ORDERED: ROCURONIUM 10MG/1ML SYR 10 MG/ML ML ONE (12:22)
[2021-06-15] MEDS ORDERED: MIDAZOLAM HCL 1 MG/ML 2ML VIAL ONE (12:22)
[2021-06-15] MEDS ORDERED: ONDANSETRON 4MG INJ ONE (12:22)
[2021-06-15] MEDS ORDERED: PHENYLEPHRINE HCL 10 MG/ML 1ML VIAL IV ONE (12:25)
[2021-06-15] MEDS ORDERED: ALBUMIN (HUMAN) 5% 250 ML IV ONE (13:46)
[2021-06-15] MEDS ORDERED: CLINDAMYCIN 900MG/6ML INJ ONE (14:05)
[2021-06-15] MEDS ORDERED: TRANEXAMIC ACID 1000MG/10ML ONE (14:05)
[2021-06-15] MEDS ORDERED: CLINDAMYCIN 900MG/6ML INJ IJ ONE (15:15)
[2021-06-15] MEDS ORDERED: DiphenhydrAMINE HCL 50 MG/ML VIAL IVP PRN (17:00)
[2021-06-15] MEDS ORDERED: POTASSIUM CHLORIDE 10% ELIXIR 20 MEQ/15 ML UDCUP PO PRN (17:00)
[2021-06-15] MEDS ORDERED: OXYCODONE HCL 5 MG TAB PO PRN ×2 (17:00)
[2021-06-15] MEDS ORDERED: CALCIUM CARB 500MG PO PRN (17:00)
[2021-06-15] MEDS: ACETAMINOPHEN 500 MG TABLET PO SCH (17:00)
[2021-06-15] MEDS ORDERED: TEMAZEPAM 15 MG CAPSULE PO PRN (17:00)
[2021-06-15] MEDS ORDERED: KETOROLAC 15MG/ML VIAL (15MG/ML) IV PRN (17:00)
[2021-06-15] MEDS ORDERED: POTASSIUM CHLORIDE 20MEQ/100ML 100 ML IV PRN (17:00)
[2021-06-15] MEDS ORDERED: FE FUMARATE/FA/MV, MIN COMB#15 1 TAB PO PRN (17:00)
[2021-06-15] MEDS ORDERED: KCL 20 MEQ ERTAB PO PRN (17:00)
[2021-06-15] MEDS ORDERED: LIDOCAINE HCL-MPF 1% 2ML VIAL IV PRN (17:00)
[2021-06-15] MEDS: 0.9%NACL 1000ML 1,000 ML IV SCH ×2 (17:00→21:56)
[2021-06-15] MEDS: TRANEXAMIC ACID 1000MG/10ML ONE ×2 (17:12→17:55)
[2021-06-15] MEDS ORDERED: IPRATROPIUM/ALBUTEROL SULFATE 3 ML SOLUTION IH ONE (17:48)
[2021-06-15] MEDS ORDERED: LABETALOL 20MG SYG IV ONE (19:01)
[2021-06-15] MEDS: CLINDAMYCIN IVPB 900MG/50ML 50 ML IVPB SCH (21:55)
[2021-06-15] MEDS: CELECOXIB 200 MG CAP PO SCH (21:56)
[2021-06-15] MEDS: ASPIRIN 81 MG EC TAB PO SCH (21:57)
[2021-06-15] MEDS: FAMOTIDINE 20MG TAB PO SCH (21:57)
[2021-06-15] MEDS: ONDANSETRON 4MG INJ IVP PRN (22:00)
[2021-06-16] MEDS: ACETAMINOPHEN 500 MG TABLET PO SCH ×3 (01:14→17:23)
[2021-06-16] MEDS: 0.9%NACL 1000ML 1,000 ML IV SCH ×2 (03:00→13:00)
[2021-06-16 03:56] VITALS: BP 137/64
[2021-06-16 04:11] LABS: HEMATOCRIT 27.4 % (36-48); MEAN CORPUSCULAR HEMOGLOBIN 27.7 pg (27.0-33.0); MEAN CORPUSCULAR HGB CONC 32.5 g/dL (32.0-36.0); MEAN CORPUSCULAR VOLUME 85.4 fL (79-99); RED BLOOD CELL COUNT(AUTO) 3.21 MIL/uL (4.00-5.50); RED CELL DISTRIBUTION WIDTH 15.6 % (11.0-15.5); WHITE BLOOD COUNT (AUTO) 12.1 K/uL (4.8-10.8)
[2021-06-16] MEDS ORDERED: MECLIZINE HCL 25 MG TABLET PO PRN (04:30)
[2021-06-16] MEDS ORDERED: ONDANSETRON ODT 4MG TAB PO PRN (04:30)
[2021-06-16] MEDS ORDERED: NITROGLYCERIN 0.4 MG SL TAB SL PRN (04:30)
[2021-06-16] MEDS: CLINDAMYCIN IVPB 900MG/50ML 50 ML IVPB SCH (05:49)
[2021-06-16 08:00] VITALS: BP 112/58
[2021-06-16] MEDS: ASPIRIN 81 MG EC TAB PO SCH ×3 (08:01→20:41)
[2021-06-16] MEDS: CELECOXIB 200 MG CAP PO SCH ×2 (08:01→20:41)
[2021-06-16] MEDS: POLYETHYLENE GLYCOL 3350 17 GM POWD.PACK PO SCH (08:02)
[2021-06-16] MEDS: TRAMADOL HCL 50 MG TABLET PO PRN (08:02)
[2021-06-16] MEDS: ISOSORBIDE MONO 30MG SR TAB PO SCH (08:02)
[2021-06-16] MEDS: FAMOTIDINE 20MG TAB PO SCH (08:03)
[2021-06-16] MEDS: METOPROLOL SUCCINATE 50 MG TAB.SR.24H PO SCH (08:05)
[2021-06-16] MEDS: LAMOTRIGINE 25 MG TAB PO SCH (08:06)
[2021-06-16] MEDS: DEXILANT 30 MG PO SCH (08:19)
[2021-06-16] MEDS: LISINOPRIL 20 MG TABLET PO SCH (09:00)
[2021-06-16 11:34] VITALS: BP 102/45
[2021-06-16 16:00] VITALS: BP 117/56
[2021-06-16 19:59] VITALS: BP 102/56
[2021-06-16] MEDS ORDERED: ATORVASTATIN 40 MG TABLET PO SCH (21:00)
[2021-06-16] MEDS ORDERED: LAMOTRIGINE 25 MG TAB PO SCH (21:00)
[2021-06-16 23:31] VITALS: BP 95/58
[2021-06-17] MEDS: ACETAMINOPHEN 500 MG TABLET PO SCH ×2 (01:00→08:26)
[2021-06-17 03:55] VITALS: BP 108/59
[2021-06-17] MEDS: ONDANSETRON 4MG INJ IVP PRN (04:17)
[2021-06-17 08:01] VITALS: BP 112/52
[2021-06-17] MEDS: LAMOTRIGINE 25 MG TAB PO SCH (08:17)
[2021-06-17] MEDS: FAMOTIDINE 20MG TAB PO SCH (08:17)
[2021-06-17] MEDS: POLYETHYLENE GLYCOL 3350 17 GM POWD.PACK PO SCH (08:17)
[2021-06-17] MEDS: ASPIRIN 81 MG EC TAB PO SCH ×2 (08:17)
[2021-06-17] MEDS: CELECOXIB 200 MG CAP PO SCH (08:17)
[2021-06-17] MEDS: DEXILANT 30 MG PO SCH (08:17)
[2021-06-17] MEDS: ISOSORBIDE MONO 30MG SR TAB PO SCH (08:17)
[2021-06-17] MEDS: METOPROLOL SUCCINATE 50 MG TAB.SR.24H PO SCH (08:18)
[2021-06-17] MEDS: LISINOPRIL 20 MG TABLET PO SCH (08:26)
[2021-06-17 10:44] VITALS: BP 118/59
[2021-06-17] MEDS ORDERED: HYDR-4060 PO (12:14)
[2021-06-17] MEDS: TRAMADOL HCL 50 MG TABLET PO PRN (15:15)
[2021-06-17 16:38] VITALS: BP 133/73
[2021-06-18] MEDS ORDERED: BISACODYL 10 MG SUPP.RECT RC PRN (17:00)
== END 2021-06-17 18:38 | disposition home health service (06) ==
LOC: DAH 09:22 → DAHIP 09:23 → 4BH 19:25
PROVIDERS: ADMIT Orthopaedic Surgery; ATTEND Orthopaedic Surgery
DX: M12.811 Other specific arthropathies, not elsewhere classified, right shoulder (principal); Z20.822 Contact with and (suspected) exposure to COVID-19; M84.411A Pathological fracture, right shoulder, initial encounter for fracture; I10 Essential (primary) hypertension; E78.5 Hyperlipidemia, unspecified; I25.10 Atherosclerotic heart disease of native coronary artery without angina pectoris; M85.80 Other specified disorders of bone density and structure, unspecified site; D62 Acute posthemorrhagic anemia; Z79.899 Other long term (current) drug therapy; Z88.0 Allergy status to penicillin; Z90.710 Acquired absence of both cervix and uterus; Z95.0 Presence of cardiac pacemaker
CPT/HCPCS: 23474; 36415 ×2; 64415; 73030; 76942; 80048 ×2; 81001; 85025; 85027; 85610; 87088; 87635; 87641; 88300; 88305; 88311; 94640; 94660; 96365; 96366; 96375 ×2; 96376; 97039 ×4; 97116 ×4; 97161; 97530 ×4; A4215; A4221; A4222; A4223; A4565; A4649 ×5; A4663; A4930; A5120; A6206; C1713; C1776; C9803; G0168; G0378 ×47; J0330; J1100; J1885; J2001; J2250; J2370; J2405 ×3; J2704; J2710; J3010; J3490 ×6; J7030; J7040; J7120 ×2; P9045

== ENCOUNTER → 2021-07-08 | Outpatient (CLI) | payer OTHER ==
[~2021-07-08] MED LIST changes: +HYDR-4060 PO
== END | disposition home or self-care (01) ==
LOC: RAH 13:58
PROVIDERS: ATTEND Nurse Practitioner
DX: M19.011 Primary osteoarthritis, right shoulder (principal); Z96.611 Presence of right artificial shoulder joint
CPT/HCPCS: 73200

== ENCOUNTER → 2021-07-17 | Outpatient (CLI) | payer OTHER ==
[2021-07-17 14:50] LABS: CREATININE 1.1 mg/dL (0.5-1.5)
== END | disposition home or self-care (01) ==
LOC: LAB 13:34
PROVIDERS: ATTEND Psychiatry & Neurology Neurology
DX: G40.909 Epilepsy, unspecified, not intractable, without status epilepticus (principal); D49.6 Neoplasm of unspecified behavior of brain
CPT/HCPCS: 36415; 82565; 84520

== ENCOUNTER → 2021-07-21 | Outpatient (CLI) | payer OTHER ==
[~2021-07-21] MED LIST changes: +IOHEXOL-350 50ML VIAL IV ONE
== END | disposition home or self-care (01) ==
LOC: RAH 09:35
PROVIDERS: ATTEND Psychiatry & Neurology Neurology
DX: G31.9 Degenerative disease of nervous system, unspecified (principal); G40.909 Epilepsy, unspecified, not intractable, without status epilepticus; D49.9 Neoplasm of unspecified behavior of unspecified site
CPT/HCPCS: 70470; Q9967

== ENCOUNTER → 2023-07-20 | Outpatient (CLI) | payer OTHER ==
[~2023-07-20] MED LIST changes: -IOHEXOL-350 50ML VIAL IV ONE; -MECL-160 PO; +MECL-302 PO; -ROSU20TA31 PO; +ROSU20TA73 PO
[2023-07-20 10:55] LABS: CREATININE 0.8 mg/dL (0.5-1.5)
== END | disposition home or self-care (01) ==
LOC: LAB 09:36
PROVIDERS: ATTEND Internal Medicine Gastroenterology
DX: R63.4 Abnormal weight loss (principal)
CPT/HCPCS: 36415; 82565; 84520

== ENCOUNTER → 2023-07-28 | Outpatient (CLI) | payer OTHER ==
[~2023-07-28] MED LIST changes: +IOHEXOL-350 75 ML VIAL IV ONE
== END | disposition home or self-care (01) ==
LOC: RAH 10:06
PROVIDERS: ATTEND Internal Medicine Gastroenterology
DX: N28.1 Cyst of kidney, acquired (principal); R63.4 Abnormal weight loss
CPT/HCPCS: 74178; Q9967